=== PATIENT | female | born 2000 | race Caucasian/White ===

== ENCOUNTER 2020-10-10 14:51 | Emergency (ER) | payer MEDICAID ==
[~2020-10-10] VITALS: Ht 152.4 cm; Wt 39.5 kg
[2020-10-10 15:00] VITALS: TEMP 97.8
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
[2020-10-10 16:53] LABS: COLLECTION METHOD CLEAN CATCH
[2020-10-10 16:58] LABS: BASO % 0.5 % (0.0-2.0); EOS # 0.1 (0.0-0.7); GRAN # 4.9 (1.4-6.5); GRAN % 61.5 % (42.2-75.2); HEMATOCRIT 41.6 % (37.0-47.0); HEMOGLOBIN 14.1 g/dl (12.5-16.0); LYMPH # 2.3 (1.2-3.4); LYMPH % 29.3 % (20.0-51.0); MEAN CELL VOLUME 90 fl (80.0-100.0); MEAN CORPUSCULAR HEMOGLOBIN 30 pg (27.0-31.0); MEAN CORPUSCULAR HGB CONC 34 g/dl (33.0-37.0); MEAN PLATELET VOLUME 11.8 fl (7.4-10.4); MONO # 0.6 (0.1-0.6); MONO % 7.4 % (1.7-9.3); PLATELET COUNT 241 K/mm3 (130-400); RED BLOOD COUNT 4.65 M/mm3 (4.10-5.30); REDCELL DISTRIBUTION WIDTH-CV 12.9 % (11.5-14.5)
[2020-10-10 17:00] LABS: MUCOUS Present /lpf; PH 6 (5-8); URINE APPEARANCE Clear; URINE BACTERIA Rare /hpf; URINE BILIRUBIN Negative (NEGATIVE); URINE BLOOD Negative (NEGATIVE); URINE COLOR Yellow; URINE GLUCOSE Negative (NEGATIVE); URINE KETONE Negative (NEGATIVE); URINE LEUKOCYTE ESTERASE Negative (NEGATIVE); URINE NITRATE Negative (NEGATIVE); URINE PROTEIN(semi-quant) Negative (NEGATIVE); URINE RBC 0-2 /hpf; URINE UROBILINOGEN Negative (NEGATIVE)
[2020-10-10 17:08] LABS: ALANINE AMINOTRANSFERASE 18 U/L (4-34); ALBUMIN 4.6 gm/dL (3.5-5.0); ALKALINE PHOSPHATASE 50 U/L (50-136); ANION GAP 10 mmol/L (7-16); AST,SGOT 37 U/L (15-37); BLOOD UREA NITROGEN 11 mg/dL (7-17); CALCIUM 9.7 mg/dL (8.4-10.2); CARBON DIOXIDE 22 mmol/L (22-30); CHLORIDE 106 mmol/L (98-107); CREATININE, serum 0.68 (0.52-1.25); GLUCOSE 88 mg/dL (74-106); POTASSIUM 4.6 mmol/L (3.4-5.0); SODIUM 138 mmol/L (137-145)
[2020-10-10 17:09] LABS: ACETAMINOPHEN < 10 ug/mL (10-30); ALCOHOL(ethanol),MEDICAL < 10 mg/dL; SALICYLATE < 1.0 mg/dL
[2020-10-10 17:11] LABS: TRICYCLIC ANTIDEPRESS URINE NEGATIVE
--- NOTE | 2020-10-10 17:28 | NUR ---
Notified nursing about [facility] not allowing patient to be release if they accept. Educated on [facility] [place] or the [facility].
[2020-10-10 17:29] LABS: HIV 1/2 Antibodies Non-Reactive; HIV-1p24 Antigen Non-Reactive
[2020-10-10] MEDS ORDERED: TYLENOL 325MG325 MG PO (23:21)
[2020-10-10] MEDS ORDERED: MOTRIN 600600 MG/TAB PO (23:21)
[2020-10-10 23:29] VITALS: BP 114/62; PULSE 78
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
== END 2020-10-10 23:29 | disposition home or self-care (01) ==
LOC: COL.ER 14:51
PROVIDERS: Family Medicine; Nurse Practitioner Primary Care
DX: T74.21XA Adult sexual abuse, confirmed, initial encounter (principal); R10.2 Pelvic and perineal pain

== ENCOUNTER 2020-10-12 13:39 | Emergency (ER) | payer MEDICAID ==
[~2020-10-12] VITALS: Ht 152.4 cm; Wt 39.5 kg
[~2020-10-12 13:39] MED LIST: MOTRIN 600600 MG/TAB PO; TYLENOL 325MG325 MG PO
[2020-10-12 13:47] VITALS: TEMP 99
[2020-10-12 14:31] LABS: COLLECTION METHOD CLEAN CATCH
[2020-10-12 14:41] LABS: AMORPHOUS CRYSTAL Present /uL; MUCOUS Present /lpf; PH 8 (5-8); SQUAMOUS EPITHELIAL 0-2 /hpf; URINE APPEARANCE Hazy; URINE BACTERIA Rare /hpf; URINE BILIRUBIN Negative (NEGATIVE); URINE BLOOD Negative (NEGATIVE); URINE COLOR Yellow; URINE GLUCOSE Negative (NEGATIVE); URINE KETONE Negative (NEGATIVE); URINE LEUKOCYTE ESTERASE Trace (NEGATIVE); URINE NITRATE Negative (NEGATIVE); URINE PROTEIN(semi-quant) 1+ (NEGATIVE); URINE RBC 0-2 /hpf; URINE UROBILINOGEN Negative (NEGATIVE)
[2020-10-12 14:49] LABS: TRICYCLIC ANTIDEPRESS URINE NEGATIVE
[2020-10-12 14:57] LABS: BASO % 0.3 % (0.0-2.0); EOS # 0.1 (0.0-0.7); EOS % 0.7 % (0-4.0); GRAN % 74.7 % (42.2-75.2); HEMATOCRIT 41.7 % (37.0-47.0); LYMPH # 1.8 (1.2-3.4); LYMPH % 16.8 % (20.0-51.0); MEAN CELL VOLUME 90 fl (80.0-100.0); MEAN CORPUSCULAR HEMOGLOBIN 30 pg (27.0-31.0); MEAN CORPUSCULAR HGB CONC 34 g/dl (33.0-37.0); MEAN PLATELET VOLUME 11.2 fl (7.4-10.4); MONO # 0.8 (0.1-0.6); MONO % 7.2 % (1.7-9.3); PLATELET COUNT 284 K/mm3 (130-400); RED BLOOD COUNT 4.63 M/mm3 (4.10-5.30); REDCELL DISTRIBUTION WIDTH-CV 12.8 % (11.5-14.5)
[2020-10-12 15:08] LABS: ACETAMINOPHEN < 10 ug/mL (10-30); ALANINE AMINOTRANSFERASE 16 U/L (4-34); ALBUMIN 4.6 gm/dL (3.5-5.0); ALCOHOL(ethanol),MEDICAL < 10 mg/dL; ALKALINE PHOSPHATASE 46 U/L (50-136); ANION GAP 7 mmol/L (7-16); AST,SGOT 25 U/L (15-37); BILIRUBIN,TOTAL 0.5 mg/dL (0.0-1.0); BLOOD UREA NITROGEN 12 mg/dL (7-17); CALCIUM 10.1 mg/dL (8.4-10.2); CARBON DIOXIDE 27 mmol/L (22-30); CHLORIDE 106 mmol/L (98-107); CREATININE, serum 0.79 (0.52-1.25); GLUCOSE 124 mg/dL (74-106); POTASSIUM 4.6 mmol/L (3.4-5.0); SALICYLATE < 1.0 mg/dL; SODIUM 140 mmol/L (137-145); TOTAL PROTEIN 7.7 gm/dL (6.4-8.2)
[2020-10-12 21:55] VITALS: BP 121/73; PULSE 73
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
== END 2020-10-12 21:55 | disposition disaster alternative care site (69) ==
LOC: COL.ER 13:39
PROVIDERS: Nurse Practitioner
DX: R45.851 Suicidal ideations (principal); F32.9 Major depressive disorder, single episode, unspecified

== ENCOUNTER 2020-10-20 10:03 | Emergency (ER) | payer MEDICAID ==
[~2020-10-20] VITALS: Ht 152.4 cm; Wt 38.2 kg
[2020-10-20 10:04] VITALS: TEMP 98.2
[2020-10-20] MEDS ORDERED: PREDNISONE20 MG PO (11:35)
[2020-10-20 14:20] VITALS: BP 149/82; PULSE 99
--- NOTE | 2020-10-21 16:47 | NUR ---
*late entry 10/20* Programmer Analyst Consultant consulted for the patient because the patient had some concerns about returning to the [facility], she is currently staying there. CORAL met with the patient and she states that they make her do chores and they know she is disabled. She states that she has pain when she walks and they have stairs. PT was ordered and she took a step. CORAL and the patient's nurse met with the patient discussed that the pain management needs to be done on an outpatient basis. The Crisis Center staff will take her back as long as she walk, they pick her up. She was crying but she was agreeable to returning there. CORAL collaborated the above information with the patient's nurse.
== END 2020-10-20 14:41 | disposition home or self-care (01) ==
LOC: COL.ER 10:03
DX: G89.29 Other chronic pain (principal); M25.552 Pain in left hip
CPT/HCPCS: J7512